=== PATIENT | male | born 1950 | race Caucasian/White ===

== ENCOUNTER 2023-10-24 14:54 | Emergency (ER) | payer MEDICARE, OTHER, SELFPAY ==
[2023-10-24] VITALS (10 sets, daily range): BP systolic 83–106; BP diastolic 47–71
[2023-10-24] MEDS: ADENOCARD 6 MG IV (15:15)
[2023-10-24] MEDS: OMNIPAQUE 50 ML PO (15:36)
[2023-10-24] MEDS: ZOFRAN 4 MG IV (15:37)
[2023-10-24] MEDS: NSS 1000 IV (15:39)
--- NOTE | 2023-10-24 15:42 | ED.GENMED ---
History of Present Illness
<Hayden Veronica DO - Last Filed: 10/24/23 15:44>
General
Chief Complaint: Abdominal Pain
Time Seen by Provider: 10/24/23 15:11
Travel History
Have you had any contact with someone who has COVID-19?: No
Do you have any symptoms of coronavirus? Fever > 100 degrees, chills, cough, shortness of breath, sore throat, loss of taste or smell, muscle aches, or headache?: No
<Cruz Mclaughlin Jr., PA-C - Last Filed: 10/24/23 20:26>
General
Source: patient and spouse
Exam Limitations: none
Nursing documentation reviewed up to this point in time: agreed with
History of Present Illness
History of Present Illness:
73-year-old male with past medical history of stroke, CAD hypertension hyperlipidemia presenting to the emergency department today with concerns of vomiting 2 days ago seem to improve yesterday but again progressed last night throughout the day
today has had ongoing nausea decreased appetite and diffuse abdominal achy discomfort. Denies any chest pain shortness of breath or palpitations. Upon arrival here patient was found to be significantly tachycardic to the 190s consistent with
supraventricular tachycardia.
Past History
<Hayden Veronica DO - Last Filed: 10/24/23 15:44>
Past History
ED Past Medical History: CVA, GERD, HTN and Other (BPH, Hepatits C)
ED Past Surgical History: Appendectomy and Orthopedic (Back surgery with laminectomy, and pinning of the lower leg)
Social History
Tobacco: Other (1 cigar per day)
Alcohol: None
Personal:
Living: with family
Employment: Disabled
Family History
Family History: Negative Diabetes, Hypertension or CAD
<Cruz Mclaughlin Jr., PA-C - Last Filed: 10/24/23 20:26>
Review of Systems
Allergies reviewed?: Yes
All Other Systems: ROS reviewed and negative except as documented in HPI and ROS
<Cruz Mclaughlin Jr. PAPatyC - Last Filed: 10/24/23 20:26>
Physical Exam
Physical Exam:
GENERAL: Alert , in no apparent distress
EYE: pupils equal and reactive
NECK: Supple, no significant adenopathy.
ENT: o/p clr, mmm.
CARDIAC: Regular rate and rhythm .
LUNGS: Clear breath sounds bilaterally, no acute respiratory distress, no wheezes/rales/rhonchi
ABDOMEN: Tender palpation to the lower abdomen otherwise soft benign abdomen.
NEUROLOGICAL: Alert and oriented, no focal neuro deficits
SKIN: Warm and dry, skin intact.
MUSCULOSKELETAL: No edema, well perfused.
PSYCH: Normal and appropriate interaction.
Course
<Hayden Veronica DO - Last Filed: 10/24/23 15:44>
Orders/Labs/Results
Orders:
Orders
10/24/23 15:00
ECG [Electrocardiogram (*1)] Urgent
Reason for Study: Tachycardia
10/24/23 15:01
EKG- Treatment ONCE
10/24/23 15:11
Adenosine [Adenocard] 18 mg .ROUTE .STK-MED ONE
10/24/23 15:18
EKG [Electrocardiogram (*1)] Urgent
Reason for Study: Chest Pain
EKG- Treatment ONCE
10/24/23 15:27
CMP [Comprehensive Metabolic Panel] Urgent
Complete Blood Count/No Diff Urgent
Lactic Acid Urgent
Lipase Urgent
10/24/23 15:29
CT Abd/pel W Iv And Oral Contr Urgent
Comment:
Reason For Exam: abd pain
Iohexol [Omnipaque] See Protocol PO NOW STA
10/24/23 15:30
Ondansetron Injectable [Zofran] 4 mg IV NOW STA
10/24/23 15:38
0.9% Sodium Chloride 1000 ml [Nss] 1,000 ml IV BOLUS
10/24/23 15:39
Adenosine [Adenocard] 6 mg IV NOW STA
10/24/23 16:19
EKG [Electrocardiogram (*1)] Urgent
Reason for Study: Chest Pain
EKG- Treatment ONCE
10/24/23 16:30
Add On- LAB Urgent
Tests Added?: lipase
10/24/23 18:54
Urinalysis Reflex To Culture Urgent
Date Specimen was Collected: 10/24/23
Time Specimen was Collected: 18:18
Urine Microscopic Reflex Cult Urgent
Abnormal Lab Results
10/24/23 10/24/23
15:27 18:54
WBC 13.9 H 10^3/uL
(4.8-10.8)
RBC 4.56 L 10^6/uL
(4.70-6.10)
MCH 31.4 H pg
(27.0-31.0)
BUN 28 H mg/dl
(9-20)
Glucose 129 H mg/dl
(70-99)
Total Bilirubin 1.4 H mg/dl
(0.2-1.3)
Urine Ketones Trace A
(Negative)
Ur Occult Blood Reflex 1+ A
(Negative)
Urine RBC 3-6 A /HPF
(0-2)
10/24/23 15:27
10/24/23 15:27
Vital Signs
Initial and Last Documented VS:
Initial Vital Signs
Temp Pulse Pulse Ox
99.1 F 198 99
10/24/23 15:07 10/24/23 15:07 10/24/23 15:07
Last Documented Vital Signs
Temp Pulse Resp BP Pulse Ox
98.5 F 89 23 106/69 95
10/24/23 18:59 10/24/23 20:00 10/24/23 20:00 10/24/23 20:00 10/24/23 18:15
<Cruz Mclaughlin Jr., PA-C - Last Filed: 10/24/23 20:26>
Orders/Labs/Results
Orders:
Orders
10/24/23 15:00
ECG [Electrocardiogram (*1)] Urgent
Reason for Study: Tachycardia
10/24/23 15:01
EKG- Treatment ONCE
10/24/23 15:11
Adenosine [Adenocard] 18 mg .ROUTE .STK-MED ONE
10/24/23 15:18
EKG [Electrocardiogram (*1)] Urgent
Reason for Study: Chest Pain
EKG- Treatment ONCE
10/24/23 15:27
CMP [Comprehensive Metabolic Panel] Urgent
Complete Blood Count/No Diff Urgent
Lactic Acid Urgent
Lipase Urgent
10/24/23 15:29
CT Abd/pel W Iv And Oral Contr Urgent
Comment:
Reason For Exam: abd pain
Iohexol [Omnipaque] See Protocol PO NOW STA
10/24/23 15:30
Ondansetron Injectable [Zofran] 4 mg IV NOW STA
10/24/23 15:38
0.9% Sodium Chloride 1000 ml [Nss] 1,000 ml IV BOLUS
10/24/23 15:39
Adenosine [Adenocard] 6 mg IV NOW STA
10/24/23 16:19
EKG [Electrocardiogram (*1)] Urgent
Reason for Study: Chest Pain
EKG- Treatment ONCE
10/24/23 16:30
Add On- LAB Urgent
Tests Added?: lipase
10/24/23 18:54
Urinalysis Reflex To Culture Urgent
Date Specimen was Collected: 10/24/23
Time Specimen was Collected: 18:18
Urine Microscopic Reflex Cult Urgent
Abnormal Lab Results
10/24/23 10/24/23
15:27 18:54
WBC 13.9 H 10^3/uL
(4.8-10.8)
RBC 4.56 L 10^6/uL
(4.70-6.10)
MCH 31.4 H pg
(27.0-31.0)
BUN 28 H mg/dl
(9-20)
Glucose 129 H mg/dl
(70-99)
Total Bilirubin 1.4 H mg/dl
(0.2-1.3)
Urine Ketones Trace A
(Negative)
Ur Occult Blood Reflex 1+ A
(Negative)
Urine RBC 3-6 A /HPF
(0-2)
10/24/23 15:27
10/24/23 15:27
Vital Signs
Initial and Last Documented VS:
Initial Vital Signs
Temp Pulse Pulse Ox
99.1 F 198 99
10/24/23 15:07 10/24/23 15:07 10/24/23 15:07
Last Documented Vital Signs
Temp Pulse Resp BP Pulse Ox
98.5 F 89 23 106/69 95
10/24/23 18:59 10/24/23 20:00 10/24/23 20:00 10/24/23 20:00 10/24/23 18:15
<Hayden Veronica, DO - Last Filed: 10/24/23 15:44>
MDM/Problems Addressed
Differential Diagnosis Includes:
SVT dehydration enteritis bowel obstruction
MDM/Problems Addressed:
Vomiting abdominal pain SVT
Chronic conditions affecting care: Previous abdomnial surgery
Acute Exacerbation and/or Progression of Chronic Illness: Previous abdomnial surgery
<Cruz Mclaughlin Jr., PA-C - Last Filed: 10/24/23 20:26>
MDM/Problems Addressed
MDM/Problems Addressed:
Vomiting abdominal pain SVT
73-year-old male presenting to the emergency department today initially with concerns of intermittent vomiting and abdominal pain over the past few days worsening today. When he arrived here heart rate in the 190s consistent with supraventricular
tachycardia. He otherwise generally felt well did not have chest pain palpitations or shortness of breath. Patient initially had a modified Valsalva maneuver attempted without success. He was then given 6 mg of adenosine with good success.
Patient then in normal sinus rhythm in the 80s. Otherwise patient did have lower abdominal discomfort to palpation mainly to the left lower quadrant and suprapubic region. Concerning this plan for CT scan for further assessment. Was given Zofran
and fluids to help with symptoms. Symptoms fully resolving after patient's SVT was treated. Labs resulting in slightly elevated white count of 13.9 elevated BUN. He was given a liter of fluid. CT scan obtained that showed multiple incidental
findings including dilatation to the pancreatic duct as well as hepatic lesion. He claims he will follow-up closely with his oncologist for management and further evaluation of this. Otherwise stable for outpatient management return precautions
given.
<Hayden Veronica DO - Last Filed: 10/24/23 15:44>
*Radiology
Radiology exam reviewed: preliminary read by ED provider
*Pulse Oximetry
Patient hypoxic: no
*EKG
Interpreted by ED Provider?: Yes
Interpretation: abnormal
Comparison EKG: changes noted
Heart Rate: 200
Rate: tachycardiac
Rhythm: SVT
Ischemia: non-specific ST changes
*Commodity Broker Interpretation
Rate: tachycardiac
Interpretation: abnormal
Heart Rate: 200
Rhythm: SVT
*Critical Care Note
Total Time (30-74mins, 75-104mins- exclusive of procedures): 32
comment:
CRITICAL CARE STATEMENT: A total of 32 minutes of critical care time was provided for this patient. This includes management of unstable vital signs, evaluation of the patient at bedside, reviewing the patient's pertinent medical records discussion
with EMS providers and patient's family in addition to discussion with consultants, review of old EKGs and review of pertinent medical records. This time with separate from time utilized to perform the aforementioned documented procedures
Data Reviewed
Review of Other/Old Records Reveals: Labs, Operative Reports, Progress Notes and Discharge Summary
Source: patient, records and family
ED Attending Note
<Hayden Veronica, DO - Last Filed: 10/24/23 15:44>
ED Attending Note
Patient seen and examined by attending physician: Yes
I performed the substantive portion of visit, reviewed & personally made and approve the management plan that is documented in note by myself or BHUMI.: Yes
ED Attending Note:
Seen with PA examined independently I was present for pertinent portion of resuscitation, including arrhythmia management,
73-year-old male prior hernia repair, peripheral vascular disease had some abdominal pain nausea vomiting found to be in SVT did not know he was tachycardic treated with vagal maneuvers unsuccessfully and then adenosine back into sinus rhythm now
his abdomen is soft, no obvious hernia minimal diffuse tenderness, will check electrolytes, CT
Perform serial abdominal exams
-
Portions of this chart may have been created with voice recognition software.� Occasional wrong word or��sound alike� substitutions may have occurred due to the inherent limitations of voice recognition software.
Discharge Plan
Departure
Patient Disposition: Home (Routine Discharge)
Date of Disposition: 10/24/23
Time of Disposition: 20:17
Patient with high blood pressure during this ER visit?: No
Condition: Good
Covid-19: Not Applicable
Discharge Problem:
SVT (supraventricular tachycardia), Liver mass, Adrenal mass
Instructions: Supraventricular tachycardia (SVT)
Prescriptions:
No Action
methadone 5 MG tablet
10 mg PO BID
atorvastatin 80 MG tablet
80 mg PO DAILY
aspirin 81 MG tablet,chewable
81 mg PO DAILY
Hold Instructions: Resume on 07/22/23. Resume aspirin 07/22/23
Medical Marijuana
1 dose inhalation Q6HPRN PRN (Reason: anxiety, pain)
quetiapine 200 mg Tablet
200 mg PO HS
mirtazapine 7.5 mg Tablet
7.5 mg PO HS
omeprazole 20 mg Tablet,Delayed Release (Dr/Ec)
20 mg PO DAILY
oxycodone 10 mg tablet
10 mg PO Q6HPRN PRN (Reason: breakthrough pain)
cholecalciferol (vitamin D3) [Vitamin D3] 25 mcg (1,000 unit) Tablet
25 mcg PO DAILY
losartan 25 mg Tablet
25 mg PO DAILY
quetiapine 50 mg Tablet
50 mg PO DAILY
multivitamin Tablet
1 tab PO DAILY
acetaminophen [acetaminophen] 325 mg tablet
650 mg PO Q4HPRN PRN (Reason: mild pain) Qty: 1 0RF
ibuprofen 200 mg tablet
400 - 600 mg PO Q6HPRN PRN (Reason: moderate pain) Qty: 1 0RF
Referrals:
Areli Day MD [Family Provider] -
Activity Restrictions/Additional Instructions:
You came to the emergency department today with concerns of initial abdominal pain nausea and vomiting. You are found to have supraventricular tachycardia which required a dose of a medication called adenosine which improved this to a normal
rhythm. You had reassuring labs. Your CT scan did show concerning findings that does require additional evaluation to rule out cancerous process. Please follow closely with your oncologist for further assessment. Return to the emergency
department any worsening, new or concerning symptoms.
Interventions
Interventions:
*Risk Screen - Suicide Last Done: 10/24/23 15:01
*General Assessment Last Done: 10/24/23 15:01
*Neglect/Abuse Screening Last Done: 10/24/23 15:01
*ED COVID-19 Vaccine History Last Done: 10/24/23 16:22
OI-Kbdpti-Cozdvajain Assessment Last Done: 10/24/23 15:50
[2023-10-24 15:51] LABS: Hematocrit 40.7 % (39.0-52.0); Hemoglobin 14.3 g/dL (13.0-18.0); Lactic Acid 1.8 mmol/L (0.7-2.0); Mean Corp Hgb Conc. 35.1 g/dL (33.0-37.0); Mean Corpuscular Hgb 31.4 pg (27.0-31.0); Mean Corpuscular Volume 89.3 fL (80.0-94.0); Mean Platelet Volume 9.3 fL (7.4-10.4); Platelet Count 226 10^3/uL (130-400); Red Blood Cell Count 4.56 10^6/uL (4.70-6.10); White Blood Cell Count 13.9 10^3/uL (4.8-10.8)
[2023-10-24 15:54] LABS: ALT (SGPT) 20 U/L (0-50); AST (SGOT) 41 U/L (17-59); Albumin 4.2 g/dl (3.5-5.0); Alkaline Phosphatase 105 U/L (38-126); Blood Urea Nitrogen 28 mg/dl (9-20); Calcium 9.8 mg/dl (8.4-10.2); Carbon Dioxide 24 mmol/L (22-30); Chloride 98 mmol/L (98-107); Glucose 129 mg/dl (70-99); Potassium 4.4 mmol/L (3.5-5.1); Sodium 136 mmol/L (135-145); Total Bilirubin 1.4 mg/dl (0.2-1.3); Total Protein 7.7 g/dl (6.3-8.2); eGFR > 60.00
[2023-10-24 17:01] LABS: Lipase 35 U/L (23-300)
[2023-10-24 19:03] LABS: Urine Albumin Trace (Neg - Trace); Urine Bilirubin Negative (Negative); Urine Character Clear (Clear); Urine Color Yellow; Urine Glucose Negative (Negative); Urine Ketone Trace (Negative); Urine Leukocyte Negative (Negative); Urine Nitrite Negative (Negative); Urine Occult Blood 1+ (Negative); Urine Specific Gravity 1.015 (<1.030); Urine Urobilinogen Negative (Neg - 1+)
[2023-10-24 19:26] LABS: Urine Squamous Cell 0-2 /LPF (Few)
== END 2023-10-24 20:30 | disposition home or self-care (01) ==
LOC: EMR 14:54
PROVIDERS: Physician Assistant; EMERGENCY PHYSICIAN Emergency Medicine; FAMILY PHYSICIAN Internal Medicine
DX: I47.10 Supraventricular tachycardia, unspecified (principal); E27.9 Disorder of adrenal gland, unspecified; R16.0 Hepatomegaly, not elsewhere classified; I25.10 Atherosclerotic heart disease of native coronary artery without angina pectoris; Z86.73 Personal history of transient ischemic attack (TIA), and cerebral infarction without residual deficits; Z98.1 Arthrodesis status; I10 Essential (primary) hypertension
CPT/HCPCS: 99291; 96374; 96375; 96361; 74177; 80053; 81003; 81015; 83605; 83690; 85027; 93005; 99285; J0153; Q9967

== ENCOUNTER → 2023-12-23 09:12 | Outpatient (REF) | payer MEDICARE, OTHER, SELFPAY | LOC: DHCBS HW 09:12 | PROVIDERS: ATTENDING PHYSICIAN Nuclear Medicine Nuclear Cardiology; FAMILY PHYSICIAN Internal Medicine | DX: I08.0 Rheumatic disorders of both mitral and aortic valves (principal); I42.9 Cardiomyopathy, unspecified | CPT/HCPCS: 93306 ==

== ENCOUNTER → 2024-02-21 09:59 | Outpatient (REF) | payer MEDICARE, OTHER, SELFPAY ==
[2024-02-21 10:28] LABS: % Basophils 0.7 % (0-2); % Eosinophils 1.1 % (0-6); % Immature Granulocytes 0.4 % (0-0.5); % Lymphocytes 12.5 % (20.5-51.1); % Monocytes 16.2 % (1.7-9.3); % Neutrophils 69.1 % (42.2-75.2); Absolute Eosinophils 0.1 10^3/uL (0-0.7); Absolute Lymphocytes 0.7 10^3/uL (1.2-3.4); Absolute Monocytes 0.9 10^3/uL (0.1-0.6); Absolute Neutrophils 3.7 10^3/uL (1.4-6.5); Hematocrit 34.4 % (39.0-52.0); Hemoglobin 11.9 g/dL (13.0-18.0); Mean Corp Hgb Conc. 34.6 g/dL (33.0-37.0); Mean Corpuscular Hgb 30.9 pg (27.0-31.0); Mean Corpuscular Volume 89.4 fL (80.0-94.0); Mean Platelet Volume 8.6 fL (7.4-10.4); Nucleated Red Blood Cells % 0 % (-); Platelet Count 173 10^3/uL (130-400); Red Blood Cell Count 3.85 10^6/uL (4.70-6.10); Red Cell Dist. Width 13.7 % (11.5-14.5); White Blood Cell Count 5.4 10^3/uL (4.8-10.8)
[2024-02-21 13:04] LABS: ALT (SGPT) 17 U/L (0-50); AST (SGOT) 40 U/L (17-59); Albumin 4.2 g/dl (3.5-5.0); Alkaline Phosphatase 118 U/L (38-126); Blood Urea Nitrogen 25 mg/dl (9-20); Calcium 9.4 mg/dl (8.4-10.2); Carbon Dioxide 28 mmol/L (22-30); Chloride 104 mmol/L (98-107); Glucose 96 mg/dl (70-99); Magnesium 1.8 mg/dl (1.6-2.3); Potassium 4.7 mmol/L (3.5-5.1); Sodium 142 mmol/L (135-145); Total Bilirubin 0.5 mg/dl (0.2-1.3); Total Protein 7.9 g/dl (6.3-8.2); eGFR > 60.00
== END ==
LOC: SDSPAT 09:59
PROVIDERS: ATTENDING PHYSICIAN Internal Medicine Cardiovascular Disease; FAMILY PHYSICIAN Internal Medicine; OTHER PHYSICIAN Nuclear Medicine Nuclear Cardiology
DX: Z01.818 Encounter for other preprocedural examination (principal); I47.10 Supraventricular tachycardia, unspecified
CPT/HCPCS: 36415; 80053; 83735; 85025; 93005

== ENCOUNTER 2024-03-10 06:06 | Day surgery (SDC) | payer MEDICARE, OTHER, SELFPAY ==
[2024-02-21 10:09] VITALS: BMI 22.4
[2024-03-10] VITALS (10 sets, daily range): BP systolic 109–132; BP diastolic 62–87; BMI 22.0
[2024-03-10 09:19] LABS: ACT-LR - POC 256 Seconds (116-155)
[2024-03-10 09:35] LABS: ACT-LR - POC 343 Seconds (116-155)
[2024-03-10 10:00] LABS: ACT-LR - POC 261 Seconds (116-155)
[2024-03-10 11:05] LABS: ACT-LR - POC 287 Seconds (116-155)
[2024-03-10] MEDS: ROXICODONE 10 MG PO (12:56)
--- NOTE | 2024-03-10 13:15 | ITS.CL.ABL ---
Reporting Specialist - Ablation
Ablation
Procedure Report:
Primary Physician: Areli Mercado MD
Primary Civil Manager: Butch Horton DO
Procedure Date: 03/10/2024
Procedure
Electrophysiology Study with SVT ablation
Left atrial recording / pacing
IV drug for arrhythmia induction
Patient History
Patient is a pleasant 73-year-old male with a past medical history significant for hypertension, hyperlipidemia, carotid artery disease, CVA of unknown mechanism, BPH, valvular heart disease, cardiomyopathy with recovered LVEF, chronic back pain and
paroxysmal supraventricular tachycardia. Clinical SVT noted to be 197 bpm terminated with adenosine and vagal maneuvers.
Method
After informed consent was obtained, the patient was brought to the EP lab in a post-absorptive, non-sedated state. A peripheral IV was in place. Continuous electrocardiography, blood pressure and pulse oximetry monitoring was initiated and
cardioversion / defibrillator electrodes were positioned on the chest in an AP orientation. A 'time-out' was called. Conscious sedation was administered with the assistance of the anesthesia services, and local anesthesia was given at the femoral
vein access sites.
Using modified Seldinger technique, vascular access was achieved and sheaths were placed. Multipolar catheters were advanced to the coronary sinus, His bundle recording position, right ventricle, and high right atrium. Following the determination
of baseline conduction intervals, comprehensive EP study was performed. Pacing and recording from the RA, RV, HBE, and CS / LA was performed.
For arrhythmia details, see below.
Fluoroscopy time:
See MAC lab
Total RF time:
2 min 16s
Estimated Blood Loss
5-10 mL
Complications
None
At the end of the procedure, protamine was provided and all catheters and sheaths were removed and hemostasis was assured with manual pressure an figure of 8 suture. The patient was returned to the recovery area in stable condition.
Access Sites:
Left Femoral Vein: 2 sheaths (7 Fr, 6 Fr)
Right Femoral Vein: 2 sheaths (8 Fr upsized to 11.5 Fr, 9 Fr)
Baseline Intervals:
NV: 143 ms
AH: 125 ms
HV: 39 ms
QRS: 133 ms
QT: 446 ms
QTc: 414 ms
A-A: 1160 ms
R-R: 1160 ms
Post-Procedure Intervals:
NV: 166 ms
AH: 124 ms
HV: 35 ms
QRS: 120 ms
QT: 458 ms
QTc: 429 ms
A-A: 1160 ms
R-R: 1160 ms
AV Conduction:
- AVWB at 520 msec
- No retrograde VA conduction noted with V-pacing
Refractory Periods
- AV Node ERP 700/390; 600/320
Procedure Synopsis:
The patient entered the room in sinus rhythm. Following placement of catheters, baseline electrophysiology study was performed. No VA conduction was noted no retrograde conduction therefore no clear evidence of an accessory pathway. Following
baseline measurements, atrial echo stimuli drivetrain was performed. Patient demonstrated an AH jump at 700/500 ms along with 2 echo beats noted at 700/410 ms. SVT was noninducible. Isoproterenol was started and findings were consistent as
mentioned with AH jump and echo beats however no evidence of SVT induced. Following isoproterenol washout, pacing maneuvers were performed once more with consistent findings. Heparin was given in bolus form for ACT 300-400 and HD grid was advanced
into the right atrium where electroanatomic mapping was performed clearly defining hiss area, coronary sinus ostium, tricuspid annulus, RA, fast and slow pathway. Following electroanatomic mapping, 8 Panamanian was exchanged for an 11.5 fr steerable
agilis sheath and a tacticath DF SE was advanced to the region of the slow pathway. RF was delivered with slow flow, 20 W with careful monitoring of AV conduction, impedance, temperature, power settings. Ablation was delivered in areas demarcated
by electroanatomic mapping as low voltage bridge/slow pathway region along with EGM's demonstrating an A-V ratio of 1:3 to 1:5. Brief slow junctional beats were noted with RF application. Ablations were performed at the level of the coronary sinus
ostial floor near the tricuspid annulus rising no higher than middle of the coronary sinus/sinus roof. Fast junctional's were noted with higher ablation and RF was immediately terminated and AV conduction remained intact for the entirety of the
case. Following RF application, electrophysiology study with extremely was once more performed on and off isoproterenol demonstrating AH jump without echoes without inducible SVT. AH jump was also noted to be intermittent. Following slow pathway
modification, baseline measurements were assessed and noted to be no different from preprocedure and catheters removed and hemostasis achieved as noted above. AV conduction remained intact pre and post procedure.
Recommendations
- Bedrest with straight-leg precautions 4 hours
-Anticipate same-day discharge if patient meets clinical metrics in stable
- Continue home medications as indicated
- Follow-up in office in 4-[address] Horton
Hussein Ruiz DO
Clinical Cardiac Electrophysiology
cc: Areli Mercado MD; Butch Horton DO
== END 2024-03-10 15:56 | disposition home or self-care (01) ==
LOC: CATH 06:06
PROVIDERS: ATTENDING PHYSICIAN Internal Medicine Cardiovascular Disease; FAMILY PHYSICIAN Internal Medicine; OTHER PHYSICIAN Nuclear Medicine Nuclear Cardiology
DX: I47.10 Supraventricular tachycardia, unspecified (principal); Z86.73 Personal history of transient ischemic attack (TIA), and cerebral infarction without residual deficits; E78.5 Hyperlipidemia, unspecified; I25.10 Atherosclerotic heart disease of native coronary artery without angina pectoris; F32.A Depression, unspecified; F41.9 Anxiety disorder, unspecified; F17.200 Nicotine dependence, unspecified, uncomplicated; Z85.89 Personal history of malignant neoplasm of other organs and systems; Z79.82 Long term (current) use of aspirin; K21.9 Gastro-esophageal reflux disease without esophagitis; Z79.899 Other long term (current) drug therapy; Z90.49 Acquired absence of other specified parts of digestive tract; Z98.890 Other specified postprocedural states
CPT/HCPCS: C1732; C1730; C1766; C2630; C1892; C1894; 76937; 85347; 86850; 86900; 86901; 93005; 93653

== ENCOUNTER → 2024-03-21 08:55 | Outpatient (REF) | payer MEDICARE, OTHER, SELFPAY | LOC: RAD 08:55 | PROVIDERS: ATTENDING PHYSICIAN Physician Assistant; FAMILY PHYSICIAN Internal Medicine | DX: I77.9 Disorder of arteries and arterioles, unspecified (principal); R47.01 Aphasia | CPT/HCPCS: 93880 ==

== ENCOUNTER → 2024-03-23 12:01 | Outpatient (REF) | payer MEDICARE, OTHER, SELFPAY | LOC: MRI 3T 12:01 | PROVIDERS: ATTENDING PHYSICIAN Nurse Practitioner Primary Care; FAMILY PHYSICIAN Internal Medicine | DX: R16.0 Hepatomegaly, not elsewhere classified (principal) | CPT/HCPCS: 74183; A9581 ==

== ENCOUNTER 2024-11-11 03:33 | Emergency (ER) | payer MEDICARE, OTHER, SELFPAY ==
[2024-11-11 03:43] VITALS: BP 154/88
[2024-11-11 04:08] LABS: % Basophils 0.2 % (0-2); % Eosinophils 0.2 % (0-6); % Immature Granulocytes 0.3 % (0-0.5); % Lymphocytes 4.7 % (20.5-51.1); % Monocytes 11.1 % (1.7-9.3); % Neutrophils 83.5 % (42.2-75.2); Absolute Lymphocytes 0.5 10^3/uL (1.2-3.4); Absolute Monocytes 1.2 10^3/uL (0.1-0.6); Absolute Neutrophils 9.1 10^3/uL (1.4-6.5); Hematocrit 34.8 % (39.0-52.0); Hemoglobin 11.8 g/dL (13.0-18.0); Mean Corp Hgb Conc. 33.9 g/dL (33.0-37.0); Mean Corpuscular Hgb 30.3 pg (27.0-31.0); Mean Corpuscular Volume 89.2 fL (80.0-94.0); Mean Platelet Volume 8.9 fL (7.4-10.4); Nucleated Red Blood Cells % 0 % (-); Platelet Count 208 10^3/uL (130-400); Red Cell Dist. Width 14.7 % (11.5-14.5); White Blood Cell Count 10.9 10^3/uL (4.8-10.8)
[2024-11-11 04:34] LABS: ALT (SGPT) 18 U/L (0-50); AST (SGOT) 32 U/L (17-59); Albumin 3.9 g/dl (3.5-5.0); Alkaline Phosphatase 111 U/L (38-126); Blood Urea Nitrogen 27 mg/dl (9-20); Calcium 9.6 mg/dl (8.4-10.2); Carbon Dioxide 22 mmol/L (22-30); Chloride 104 mmol/L (98-107); Glucose 142 mg/dl (70-99); Lipase 31 U/L (23-300); Potassium 4.4 mmol/L (3.5-5.1); Sodium 138 mmol/L (135-145); Total Bilirubin 1.3 mg/dl (0.2-1.3); Total Protein 7.7 g/dl (6.3-8.2); eGFR > 60.00
[2024-11-11 05:08] VITALS: BP 158/68
== END 2024-11-11 05:25 | disposition left against medical advice (07) ==
LOC: EMR 03:33
PROVIDERS: EMERGENCY PHYSICIAN Emergency Medicine
DX: R07.9 Chest pain, unspecified (principal); Z53.21 Procedure and treatment not carried out due to patient leaving prior to being seen by health care provider
CPT/HCPCS: 80053; 83690; 85025; 93005

== ENCOUNTER 2024-11-11 13:38 | Inpatient (IN) | payer MEDICARE, OTHER, SELFPAY ==
[2024-11-11 08:44] VITALS: BP 162/88
--- NOTE | 2024-11-11 09:06 | ED.GENMED ---
History of Present Illness
<SONIA Mak - Last Filed: 11/11/24 12:56>
General
Chief Complaint: Abdominal Pain
Source: patient
Exam Limitations: none
Time Seen by Provider: 11/11/24 09:05
Nursing documentation reviewed up to this point in time: agreed with
History of Present Illness
History of Present Illness:
74-year-old male with past medical history of chronic pain on chronic narcotics, CVA, tonsillar cancer, CAD hypertension hyperlipidemia presents to the ER complaining of abdominal pain since yesterday morning. He reports his vomit about 5 times and
there is some black mixed with the bile. He denies any black or dark stools. He last had a bowel movement yesterday morning. He does not feel constipated. He is on chronic pain medicine including methadone and oxycodone as needed. He denies any
fever or chills. He was here earlier This morning had blood work but left before getting seen.
Patient has had prior abdominal imaging including abdominal MRI(2023) MRI revealed mild dilation of the proximal pancreatic duct up to 5.5 mm however MRI negative for any suspicious findings
Past History
<SONIA Mak - Last Filed: 11/11/24 12:56>
Past History
ED Past Medical History: CVA, GERD, HTN and Other (BPH, Hepatits C)
ED Past Surgical History: Appendectomy and Orthopedic (Back surgery with laminectomy, and pinning of the lower leg)
Social History
Tobacco: Other (1 cigar per day)
Alcohol: None
Personal:
Living: with family
Employment: Disabled
Family History
Family History: Negative Diabetes, Hypertension or CAD
Review of Systems
<SONIA Mak - Last Filed: 11/11/24 12:56>
Review of Systems
Allergies reviewed?: Yes
Other source history: family
All Other Systems: ROS reviewed and negative except as documented in HPI and ROS
Constitutional: Reports no symptoms
Respiratory: Reports no symptoms
Cardiac: Reports no symptoms
ABD/GI: Reports abdominal pain, nausea and vomiting; Denies bloody stools or black stools
: Reports no symptoms
Musculoskeletal: Reports no symptoms
Skin: Reports no symptoms
Neurological: Reports no symptoms
Psychiatric: Reports no symptoms
Phy Exam
<SONIA Mak - Last Filed: 11/11/24 12:56>
General Physical Exam
General Presentation: no apparent distress
General age: appears stated age
General Skin: warm and dry
General Habitus: normal
General Hydration: appears well hydrated
Cardiovascular Exam
Cardiovascular Exam: regular rate/rhythm, no murmur and normal peripheral pulses
Gastrointestinal Exam
Gastrointestinal Exam: soft and other (mild non specific Tender throughout)
Neurological Exam
Neurological Exam: alert and oriented x3
Musculoskeletal Exam
Musculoskeletal Exam: full ROM
Skin Exam
Skin Exam: normal color and warm/dry
Psychiatric Exam
Psychiatric Exam: normal mood/affect
Course
<SONIA Mak - Last Filed: 11/11/24 12:56>
Orders/Labs/Results
Orders:
Orders
11/11/24 09:14
Electrocardiogram (*1) Stat
Reason for Study: Abdominal Pain
EKG- Treatment ONCE
IV Insert/Care/Rem.- Treatment PRN
Urinalysis Reflex To Culture Urgent
Date Specimen was Collected: 11/11/24
Time Specimen was Collected: 11:42
0.9% Sodium Chloride 1000 ml [Nss] 1,000 ml IV BOLUS
HYDROmorphone [Dilaudid] 1 mg IV NOW STA
11/11/24 09:56
Ondansetron Injectable [Zofran] 4 mg .ROUTE .STK-MED ONE
11/11/24 09:57
Iohexol [Omnipaque] See Protocol PO NOW STA
11/11/24 10:03
Ondansetron Injectable [Zofran] 4 mg IV NOW STA
11/11/24 11:35
CT Abd/Pel (IV only)-DH only Urgent
Comment:
Reason For Exam: abd pain /vomiting /unable to tolerate oral contra
11/11/24 12:59
Norovirus by PCR Routine
ROWENA Source: Feces/Stool
Specimen Description:
Stool Culture Routine
ROWENA Source: Feces/Stool
Specimen Description:
Stool For WBC Routine
ROWENA Source: Feces/Stool
Specimen Description:
11/11/24 09:14
11/11/24 09:14
Vital Signs
Initial and Last Documented VS:
Initial Vital Signs
Temp Pulse Resp BP Pulse Ox
98.2 F 62 16 162/88 99
11/11/24 08:44 11/11/24 08:44 11/11/24 08:44 11/11/24 08:44 11/11/24 08:44
Last Documented Vital Signs
Temp Pulse Resp BP Pulse Ox
98.0 F 70 18 178/87 100
11/11/24 12:30 11/11/24 12:30 11/11/24 12:30 11/11/24 12:30 11/11/24 12:30
Blast Furnace Helper consulted with Physician
Blast Furnace Helper consulted with physician?: Yes
Name of Physician Consulted: Ernesto
<Darnell Orozco MD - Last Filed: 11/11/24 13:20>
Orders/Labs/Results
Orders:
Orders
11/11/24 09:14
Electrocardiogram (*1) Stat
Reason for Study: Abdominal Pain
EKG- Treatment ONCE
IV Insert/Care/Rem.- Treatment PRN
Urinalysis Reflex To Culture Urgent
Date Specimen was Collected: 11/11/24
Time Specimen was Collected: 11:42
0.9% Sodium Chloride 1000 ml [Nss] 1,000 ml IV BOLUS
HYDROmorphone [Dilaudid] 1 mg IV NOW STA
11/11/24 09:56
Ondansetron Injectable [Zofran] 4 mg .ROUTE .STK-MED ONE
11/11/24 09:57
Iohexol [Omnipaque] See Protocol PO NOW STA
11/11/24 10:03
Ondansetron Injectable [Zofran] 4 mg IV NOW STA
11/11/24 11:35
CT Abd/Pel (IV only)-DH only Urgent
Comment:
Reason For Exam: abd pain /vomiting /unable to tolerate oral contra
11/11/24 12:59
Norovirus by PCR Routine
ROWENA Source: Feces/Stool
Specimen Description:
Stool Culture Routine
ROWENA Source: Feces/Stool
Specimen Description:
Stool For WBC Routine
ROWENA Source: Feces/Stool
Specimen Description:
11/11/24 09:14
11/11/24 09:14
Vital Signs
Initial and Last Documented VS:
Initial Vital Signs
Temp Pulse Resp BP Pulse Ox
98.2 F 62 16 162/88 99
11/11/24 08:44 11/11/24 08:44 11/11/24 08:44 11/11/24 08:44 11/11/24 08:44
Last Documented Vital Signs
Temp Pulse Resp BP Pulse Ox
98.0 F 70 18 178/87 100
11/11/24 12:30 11/11/24 12:30 11/11/24 12:30 11/11/24 12:30 11/11/24 12:30
<SONIA Mak - Last Filed: 11/11/24 12:56>
MDM/Problems Addressed
Differential Diagnosis Includes:
Not limited to viral syndrome, obstruction diverticulitis colitis
MDM/Problems Addressed:
Patient is document is a 74-year-old male who presents to the ER complaining abdominal pain since yesterday with nausea vomiting. Patient was just here at 4 AM had blood work but left prior to being seen. Patient presents nausea dry heaving
reports his emesis was more black-colored at home however it is green here. Abdomen with nonspecific mild tenderness. Patient was medicated for pain and Zofran however continues to vomit. Patient unable to tolerate oral contrast will order CT IV
contrast only. Labs from 4 AM were reviewed and unremarkable including a normal lipase. Patient had previous finding of pancreatic duct dilatation and hepatic lesion on previous CAT scan in 2023 however MRI was done and MRI of his abdomen which
was negative .
Patient was medicated for pain and nausea here but complains of persistent nausea and abdominal discomfort. CAT scan done today. Which cannot rule out enteritis. There is stable biliary tract dilatation likely the cycle of prior cholecystectomy
and a benign adrenal nodule likely. Patient the ED attending patient does not feel that he can go home will admit likely ops. Not limited to viral syndrome
<SONIA Mak - Last Filed: 11/11/24 12:56>
*Radiology
Radiology exam reviewed: radiology read reviewed
*Pulse Oximetry
Patient hypoxic: no
*Critical Care Note
Total Time (30-74mins, 75-104mins- exclusive of procedures): Not Applicable
ED Attending Note
<SONIA Mak - Last Filed: 11/11/24 12:56>
-
Portions of this chart may have been created with voice recognition software.� Occasional wrong word or��sound alike� substitutions may have occurred due to the inherent limitations of voice recognition software.
<Darnell Orozco MD - Last Filed: 11/11/24 13:20>
ED Attending Note
Patient seen and examined by attending physician: Yes
I performed the substantive portion of visit, reviewed & personally made and approve the management plan that is documented in note by myself or BHUMI.: Yes
ED Attending Note:
74-year-old male 1+ day of abdominal pain recurrent vomiting. History of same in the past. History of pancreatitis.
On exam patient is nontoxic in no distress. Vital signs are stable. Lungs clear and equal. Heart regular rate and rhythm no murmur. Abdomen soft. Bowel sounds present. Mild periumbilical tenderness. No rebound or guarding no mass or hernia
Labs are stable. CT is stable. Discussed inpatient versus outpatient management. Patient is uncomfortable going home. He will be admitted as observation.
Discharge Plan
Departure
Patient Disposition: Admit
Date of Disposition: 11/11/24
Time of Disposition: 12:52
Admit to: Med/Surg
Admit to doctor: hospitalist
Presentation/result/management discussed w/ accepting MD/DO: Hospitalist
Patient with high blood pressure during this ER visit?: Yes
Condition: Fair
Covid-19: Not Applicable
Discharge Problem:
Nausea and vomiting, Abdominal pain
Prescriptions:
No Action
methadone 5 MG tablet
10 mg PO BID
atorvastatin 80 MG tablet
80 mg PO DAILY
aspirin 81 MG tablet,chewable
81 mg PO DAILY
Medical Marijuana
1 dose inhalation Q6HPRN PRN (Reason: anxiety, pain)
quetiapine 200 mg Tablet
200 mg PO HS
mirtazapine 7.5 mg Tablet
7.5 mg PO HS
omeprazole 20 mg Tablet,Delayed Release (Dr/Ec)
20 mg PO DAILY
oxycodone 10 mg tablet
10 mg PO Q6HPRN PRN (Reason: pain)
cholecalciferol (vitamin D3) [Vitamin D3] 25 mcg (1,000 unit) Tablet
25 mcg PO DAILY
losartan 25 mg Tablet
25 mg PO DAILY
quetiapine 50 mg Tablet
50 mg PO BID
multivitamin Tablet
1 tab PO HS
acetaminophen 325 mg tablet
650 mg PO Q4HPRN PRN (Reason: mild pain) Qty: 1 0RF
ibuprofen 200 mg tablet
400 - 600 mg PO Q6HPRN PRN (Reason: moderate pain) Qty: 1 0RF
metoprolol succinate 25 mg Tablet Extended Release 24 Hr
12.5 mg PO DAILY
Referrals:
Areli Day MD [Family Provider] -
Interventions
Interventions:
RG-Obozbw-Bfgubosmiv Assessment Last Done: 11/11/24 09:53
Discharge Date and Time
Print Language: SAMI
[2024-11-11 09:53] VITALS: BMI 22.8
[2024-11-11] MEDS: ZOFRAN 4 MG IV (10:05)
[2024-11-11] MEDS: NSS 1000 IV ×2 (10:05→16:13)
[2024-11-11] MEDS: DILAUDID 1 MG IV (10:05)
[2024-11-11] MEDS: OMNIPAQUE 50 ML PO (10:33)
[2024-11-11 12:30] VITALS: BP 178/87
--- NOTE | 2024-11-11 12:55 | HPS.HSE ---
Family Physician
-
Family Physician: Areli Day
Chief Complaint
-
n/v
History of Present Illness
74-year-old male with past medical history of chronic pain on chronic narcotics, CVA, tonsillar cancer, CAD hypertension hyperlipidemia presents to the ER complaining of abdominal pain since yesterday morning.patient reports vomiting since yesterday
morning . He is vomiting bile . He has not eaten for past 2 days . He had moved his regular bowel movement yesterday . Denies diarrhea patient denied fever. Patient stated some chills. Patient denied headache, dizziness or syncope. Patient
denied chest pain or short of breath. Patient denied dysuria or hematuria.
Patient received Dilaudid, Zofran and normal saline in ER. CT with enteritis admitted for further management.
Medical History
Past Medical History
Past Medical History: Reports Other
Additional Past Medical History:
Hypertension
Palpitation
Bilateral carotid artery disease
Hypertension
Hyperlipidemia
Bradycardia
Chronic calculus cholecystitis
Goals of bronchitis
UTI
SVT
Chronic pain
Cholangitis due to bile calculus with obstruction
Stenosis of left carotid artery
CVA
BPH
Tonsillar cancer
Past Surgical History: Reports Other
Additional Past Surgical History:
Lap cholecystectomy
Left hip IM nail fixation
Robotic assisted ventral right inguinal hernia repair with mesh
Appendectomy
Prostatectomy
Hernia operation
Cardiac ablation
Social History
Tobacco: Smoker (Half a cigar daily)
Alcohol: None
Drug: None
Personal:
Living: With Family
Family History
Family History: Not pertinent
Allergies / Home Medications
Allergies reflects when Allergies were last updated in [facility].
Home Medications with original date entered in [facility]
Allergy/Medication List:
Allergies
Allergy/AdvReac Type Severity Reaction Status Date / Time
pollen extracts Allergy SEASONAL Verified 11/11/24 03:42
ALLERGIES
morphine AdvReac Agitation, Verified 11/11/24 03:42
unable to
fall asleep
Home Medications
atorvastatin 80 mg tablet 80 mg PO DAILY High cholesterol 07/02/20
methadone 5 mg tablet 10 mg PO BID Pain 07/02/20
aspirin 81 mg chewable tablet 81 mg PO DAILY Blood clot prevention/tx 07/04/20
Medical Marijuana 1 dose inhalation Q6HPRN PRN anxiety, pain 10/19/21
mirtazapine 7.5 mg tablet 7.5 mg PO HS Mental Health/Anxiety 05/13/23
omeprazole 20 mg tablet,delayed release 20 mg PO DAILY Gastrointestinal Issue 05/13/23
oxycodone 10 mg tablet 10 mg PO Q6HPRN PRN pain 05/13/23
quetiapine 200 mg tablet 200 mg PO HS Mental Health/Anxiety 05/13/23
cholecalciferol (vitamin D3) 25 mcg (1,000 unit) tablet (Vitamin D3) 25 mcg PO DAILY 07/15/23
losartan 25 mg tablet 25 mg PO DAILY 07/15/23
quetiapine 50 mg tablet 50 mg PO BID 07/19/23
multivitamin 1 tab PO HS 08/31/23
acetaminophen 325 mg tablet 650 mg (2 x 325 mg) PO Q4HPRN PRN mild pain #1 tab 09/10/23
ibuprofen 200 mg tablet 400 - 600 mg (2 - 3 x 200 mg) PO Q6HPRN PRN moderate pain #1 tab 09/10/23
metoprolol succinate 25 mg tablet,extended release 24 hr 12.5 mg PO DAILY 02/16/24
Review of Systems
-
Constitutional: Reports No Symptoms
EENT: Reports No Symptoms
Respiratory: Reports No Symptoms
Cardiac: Reports No Symptoms
Abdomen/GI: Reports Abdominal Pain, Nausea and Vomiting
: Reports No Symptoms
Musculoskeletal: Reports No Symptoms
Skin: Reports No Symptoms
Neurological: Reports No Symptoms
Endocrine: Reports No Symptoms
Hematologic/Lymphatic: Reports No Symptoms
Psych: Reports No Symptoms
Physical Exam
Vital Signs
Vital Signs
Temp Pulse Resp BP Pulse Ox
98.0 F 70 18 178/87 100
11/11/24 12:30 11/11/24 12:30 11/11/24 12:30 11/11/24 12:30 11/11/24 12:30
Physical Exam
General: Well Developed, Well Nourished and No Apparent Distress
HEENT: NormoCephalic, Moist mucous membranes and Atraumatic
Respiratory: Clear
Cardiac: S1/S2 and Regular Rhythm; No Murmur or Rub
GI: Soft, Non Distended, Normal Bowel Sounds and Tender; No Organomegaly
Rectal: Deferred by Provider
Musculoskeletal: No Clubbing, No Cyanosis and No Edema
Skin: No Rash
Neuro: AO x 3 and Nonfocal/grossly intact
Psych: Calm
Laboratory Results
-
11/11/24 09:14
11/11/24 09:14
Laboratory Results
Total Bilirubin Cancelled 11/11/24 09:14
AST Cancelled 11/11/24 09:14
ALT Cancelled 11/11/24 09:14
Alkaline Phosphatase Cancelled 11/11/24 09:14
Lipase Cancelled 11/11/24 09:14
Data Reviewed
-
CT Scan: Report Reviewed by me
Lab Data: Labs Reviewed by me
Impression/Plan
-
#persistent abdominal pain associated with n/v secondary to Enteritis
-CT with enteritis
-wbc 10.9
-Keep patient n.p.o., advance as tolerated
-Zofran as needed for nausea vomiting Dilaudid as needed for pain
-
#anemia of chronic disease
-hgb stable at 11.8
-no active bleeding
-ctm
#Throat cancer history of chemoradiation finish May 2021
#History of chronic memory impairment post chemo, radiation left side neck
#CVA Hx
-cont statin, asa
�
#HLD
�-cont statin
#GERD
- cont PPI
#Hepatitis C Hx
#Chronic back pain, hip pain laminectomy back
�-cont methadone 10 mg bid, 5mg hs
-Vapes medical marijuana
#Insomnia
-cont Remeron
#DVT prophylaxis�subcu heparin
Full code
--- NOTE | 2024-11-11 13:43 | W.PN.UPDATE ---
Update Note
Progress Note Update
This note serves as an addendum to the H&P by administrative accountant BHUMI Gretchen PRINCE
HPI
74M HX chronic narcotics dependent chronic pain syndrome, , CVA, tonsillar cancer, CAD hypertension hyperlipidemia seen at ER;
- acute onset of abdominal pain since yesterday morning; s/p Dilaudid, Zofran and normal saline in ER
- vomiting bilus vomitus since yesterday morning .
- not eaten for past 2 days
- regular bowel movement yesterday
- POS chills . No fever
AP CT with enteritis admitted for further management.
ROS
- enies diarrhea patient denied fever.
- denied headache, dizziness or syncope.
- denied chest pain or short of breath. Patient denied dysuria or hematuria.
PHX; as above
Vital Signs
Temp Pulse Resp BP Pulse Ox
98.0 F 70 18 178/87 100
11/11/24 12:30 11/11/24 12:30 11/11/24 12:30 11/11/24 12:30 11/11/24 12:30
PE
Gen: Not toxic
HEENT: anicteric
Neck: supple
Lungs: CTA
Cor: RRR S1 S2
Abdomen: diffusely tender abdomen, no guarding , no rigidity
MOVIE EXTRA: AAA O3, NFND
MS: No edema
Psych: normal affect
Laboratory Tests
11/11/24
04:00
WBC 10.9 H
Hgb 11.8 L
Plt Count 208
BUN 27 H
Creatinine 1.0
eGFR > 60.00
Glucose 142 H
AST 32
ALT 18
[address] Abd/Pel (IV only)-
Limited evaluation of intestinal tract without intestinal obstruction or free air.
Some nondistended fluid-filled loops of small bowel, nonspecific, CANNOT EXCLUDE ENTERITIS.
Prior cholecystectomy. Stable biliary tract dilatation, likely the sequela of prior cholecystectomy.
Small hiatal hernia.
Stable 1.1 cm left adrenal nodule, most likely benign.
Prior appendectomy.
Stable marked T12 vertebral compression fracture, chronic.
EKG
SINUS BRADYCARDIA
LEFT ANTERIOR FASCICULAR BLOCK
ABNORMAL ECG
WHEN COMPARED WITH ECG OF 11-NOV-2024 03:44,
NO SIGNIFICANT CHANGE WAS FOUND
Confirmed by STEVE ANNA MD ([id number]) on 11/11/2024 11:24:13 AM
ASSESSMENT & PLAN
74M HX chronic narcotics dependent chronic pain syndrome, , CVA, tonsillar cancer, CAD hypertension hyperlipidemia
acute onset of abdominal pain with bolius vomiting, denied dirrhea and contact exposure
4 yr old male presents for n/v persistant and abd pain . ct shows enteritis. pt does not feel like he can go home .. obs . He had labs from 4am . he was here earlier had blood work left without being
Persistent abdominal pain associated with n/v secondary to acute gastritis/enteritis
- suspect viral syndrome
- Norovirus with new onset tof diarrhea
- supportive care: NPO and ADAT, IVF, Anti emetics PRN, additioanl PRN IV Dilaudid for severe pain
Anemia of chronic disease: Hgb 11.8
-no active bleeding
HX Throat cancer: s/p chemoradiation as of May 2021
HX chronic memory impairment post chemo, XRT
HX CVA
HLD
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
Chronic back pain, hip pain
- HX laminectomy back
- cont methadone 10 mg bid, 5mg hs
- Vapes medical marijuana
Chr insomnia
- cont. Remeron
HX Hepatitis C
DVT Px: SQH
Full code
IP MS
[2024-11-11 15:00] VITALS: BP 160/70
[2024-11-11] MEDS: SEROQUEL 50 MG PO (16:14)
[2024-11-11] MEDS: DILAUDID 0.5 MG IV (16:15)
[2024-11-11 19:03] LABS: Urine Albumin 2+ (Neg - Trace); Urine Bilirubin Negative (Negative); Urine Character Clear (Clear); Urine Color Yellow; Urine Glucose Negative (Negative); Urine Ketone Negative (Negative); Urine Leukocyte Negative (Negative); Urine Nitrite Negative (Negative); Urine Occult Blood 2+ (Negative); Urine Urobilinogen Negative (Neg - 1+)
[2024-11-11 19:11] LABS: Urine Red Blood Cell 0-2 /HPF (0-2); Urine Squamous Cell 0-2 /LPF (Few)
[2024-11-11 20:59] VITALS: BP 146/79
[2024-11-11] MEDS: SEROQUEL 200 MG PO (21:30)
[2024-11-11] MEDS: DOLOPHINE 10 MG PO (21:31)
[2024-11-11] MEDS: HEPARIN 5000 UNITS SC (21:31)
[2024-11-11] MEDS: REMERON 7.5 MG PO (21:31)
[2024-11-11 23:32] VITALS: BP 115/57
[2024-11-12 07:00] VITALS: BP 124/74
[2024-11-12 07:41] LABS: Hemoglobin 10.7 g/dL (13.0-18.0); Mean Corp Hgb Conc. 32.4 g/dL (33.0-37.0); Mean Corpuscular Hgb 29.9 pg (27.0-31.0); Mean Corpuscular Volume 92.2 fL (80.0-94.0); Mean Platelet Volume 9.4 fL (7.4-10.4); Platelet Count 232 10^3/uL (130-400); Red Blood Cell Count 3.58 10^6/uL (4.70-6.10); Red Cell Dist. Width 15.1 % (11.5-14.5); White Blood Cell Count 8.8 10^3/uL (4.8-10.8)
[2024-11-12] MEDS: SEROQUEL 50 MG PO ×2 (09:34→16:36)
[2024-11-12] MEDS: LOW STRENGTH ASPIRIN 81 MG PO (09:34)
[2024-11-12] MEDS: LIPITOR 80 MG PO (09:36)
[2024-11-12] MEDS: PROTONIX 40 MG PO (09:36)
[2024-11-12] MEDS: TOPROL XL 12.5 MG PO (09:40)
[2024-11-12] MEDS: COZAAR 25 MG PO (09:40)
[2024-11-12] MEDS: DOLOPHINE 10 MG PO (09:41)
[2024-11-12] MEDS: HEPARIN 5000 UNITS SC (09:41)
--- NOTE | 2024-11-12 10:16 | CM ---
gun club manager reviewed patient's chart and met with patient and patient states he lives with his spouse is independent with adl's and ambulation, has a cane that he occasionally uses, patient drives. Home with spouse no needs when stable.
PCP: Areli Estrada
Pharm[facility]: [facility]
--- NOTE | 2024-11-12 14:11 | W.PN.HOSP.TC ---
Today's Communication/Plan
-
Assessment / Plan
Assessment / Plan
nad
ctabl
rrr
soft nt nd
calm
aaox3
enteritis resolved
advance diet as tolerated
left adrenal nodule
outpt pcp follow up for continued follow up
dc home if able to tolerate diet
Anticipated Discharge: Today
Subjective/Interval History
-
Date of Service: November 12, 2024
seen and examined. nv resolved. ready for a diet
Objective Data
-
Labs:
Laboratory Results
11/12/24
06:41
WBC 8.8
Hgb 10.7 L
Hct 33.0 L
Plt Count 232
Vital Signs:
Vital Signs
Temp Pulse Resp BP Pulse Ox
98.0 F 68 16 124/74 94
11/12/24 07:00 11/12/24 07:00 11/12/24 07:00 11/12/24 07:00 11/12/24 07:00
I&O
11/11/24 11/12/24 11/13/24
06:59 06:59 06:59
Intake Total 750 / 750 480 / 480
Balance 750 / 750 480 / 480
--- NOTE | 2024-11-12 14:21 | W.DCSUMMARY ---
Discharge Summary
Discharge Data
Date of Admission: 11/11/24
Date of Discharge: 11/12/24
-
Pending Results: No
Hospital Course
74-year-old male with past medical history of chronic pain on chronic narcotics, CVA, tonsillar cancer, CAD hypertension hyperlipidemia
Presented with NV and abdominal pain. Recieved antiemetics and IVF with improvemment of symtpomatology. Will DC home home.
Will need to follow up with PCP. Left adrenal nodule will need to be follow up with PCP as well
CTAP
IMPRESSION:
Limited evaluation of intestinal tract without intestinal obstruction or free air. Some nondistended fluid-filled loops of small bowel, nonspecific, CANNOT EXCLUDE ENTERITIS.
Prior cholecystectomy. Stable biliary tract dilatation, likely the sequela of prior cholecystectomy.
Small hiatal hernia.
Stable 1.1 cm left adrenal nodule, most likely benign.
Prior appendectomy.
Stable marked T12 vertebral compression fracture, chronic.
Discharge Plan
-
Patient Disposition: Home (Routine Discharge)
Discharge Diagnosis/Procedures: Enteritis
Diet: As tolerated, Low Fat, Low Cholesterol and 2 Gram Sodium
Activity: As tolerated
Activity Restrictions/Additional Instructions:
Presented with NV and abdominal pain. Recieved antiemetics and IVF with improvemment of symtpomatology. Will DC home home.
Will need to follow up with PCP. Left adrenal nodule will need to be follow up with PCP as well
CTAP
IMPRESSION:
Limited evaluation of intestinal tract without intestinal obstruction or free air. Some nondistended fluid-filled loops of small bowel, nonspecific, CANNOT EXCLUDE ENTERITIS.
Prior cholecystectomy. Stable biliary tract dilatation, likely the sequela of prior cholecystectomy.
Small hiatal hernia.
Stable 1.1 cm left adrenal nodule, most likely benign.
Prior appendectomy.
Stable marked T12 vertebral compression fracture, chronic.
Referrals:
Areli Day MD [Family Provider] -
Prescriptions:
New
metoprolol succinate 25 mg Tablet Extended Release 24 Hr
12.5 mg PO DAILY Qty: 30 0RF
Continued
methadone 5 MG tablet
10 mg PO BID
Patient Comments:
patient flled wilmer 10/17/24 #150
atorvastatin 80 MG tablet
80 mg PO DAILY
aspirin 81 MG tablet,chewable
81 mg PO DAILY
Medical Marijuana
1 dose inhalation Q6HPRN PRN (Reason: anxiety, pain)
quetiapine 200 mg Tablet
200 mg PO HS
mirtazapine 7.5 mg Tablet
7.5 mg PO HS
omeprazole 20 mg Tablet,Delayed Release (Dr/Ec)
20 mg PO DAILY
oxycodone 10 mg tablet
10 mg PO Q6HPRN PRN (Reason: pain)
cholecalciferol (vitamin D3) [Vitamin D3] 25 mcg (1,000 unit) Tablet
25 mcg PO DAILY
losartan 25 mg Tablet
25 mg PO DAILY
quetiapine 50 mg Tablet
50 mg PO BID
multivitamin Tablet
1 tab PO DAILY
Discharge Orders:
Discharge Patient (As Directed); Ordered 11/12/24
Ordered By: Pratik Camara
Discharge Date and Time
Print Language: CZECH
--- NOTE | 2024-11-12 14:47 | CM ---
Home today no needs.
Plan; Home no needs.
[2024-11-12 15:00] VITALS: BP 137/93
== END 2024-11-12 17:33 | disposition home or self-care (01) | DRG 392 ==
LOC: 4 WEST ACU 13:38
PROVIDERS: Nurse Practitioner; Registered Nurse; ADMITTING PHYSICIAN Internal Medicine; ATTENDING PHYSICIAN Hospitalist; EMERGENCY PHYSICIAN Emergency Medicine; FAMILY PHYSICIAN Internal Medicine
DX: K52.9 Noninfective gastroenteritis and colitis, unspecified (principal); F11.20 Opioid dependence, uncomplicated; E27.8 Other specified disorders of adrenal gland; Z90.49 Acquired absence of other specified parts of digestive tract; K44.9 Diaphragmatic hernia without obstruction or gangrene; F41.9 Anxiety disorder, unspecified; G89.4 Chronic pain syndrome; Z85.818 Personal history of malignant neoplasm of other sites of lip, oral cavity, and pharynx; I25.10 Atherosclerotic heart disease of native coronary artery without angina pectoris; Z86.73 Personal history of transient ischemic attack (TIA), and cerebral infarction without residual deficits; I10 Essential (primary) hypertension; E78.5 Hyperlipidemia, unspecified; N40.0 Benign prostatic hyperplasia without lower urinary tract symptoms; Z79.82 Long term (current) use of aspirin; F51.04 Psychophysiologic insomnia; D63.8 Anemia in other chronic diseases classified elsewhere; Z92.21 Personal history of antineoplastic chemotherapy; Z92.3 Personal history of irradiation; F17.290 Nicotine dependence, other tobacco product, uncomplicated; K21.9 Gastro-esophageal reflux disease without esophagitis
CPT/HCPCS: 74177; 80053; 81003; 81015; 83690; 85025; 85027; 87045; 87046; 87427; 89055; 93005; 96374; 96375; 99285; Q9967

== ENCOUNTER 2025-01-20 18:36 | Emergency (ER) | payer MEDICARE, OTHER, SELFPAY ==
[2025-01-20 18:40] VITALS: BP 159/86
[2025-01-20 20:29] VITALS: BMI 21.2
[2025-01-20 21:02] VITALS: BP 144/78
[2025-01-20 21:03] LABS: % Basophils 0.2 % (0-2); % Immature Granulocytes 0.3 % (0-0.5); % Monocytes 6.7 % (1.7-9.3); % Neutrophils 87.8 % (42.2-75.2); Absolute Lymphocytes 0.5 10^3/uL (1.2-3.4); Absolute Monocytes 0.7 10^3/uL (0.1-0.6); Absolute Neutrophils 8.7 10^3/uL (1.4-6.5); Hematocrit 35.8 % (39.0-52.0); Hemoglobin 12.4 g/dL (13.0-18.0); Mean Corp Hgb Conc. 34.6 g/dL (33.0-37.0); Mean Corpuscular Hgb 29.7 pg (27.0-31.0); Mean Corpuscular Volume 85.9 fL (80.0-94.0); Mean Platelet Volume 8.7 fL (7.4-10.4); Nucleated Red Blood Cells % 0 % (-); Platelet Count 362 10^3/uL (130-400); Red Blood Cell Count 4.17 10^6/uL (4.70-6.10); Red Cell Dist. Width 14.5 % (11.5-14.5); White Blood Cell Count 9.9 10^3/uL (4.8-10.8)
--- NOTE | 2025-01-20 21:18 | ED.GENMED ---
History of Present Illness
General
Chief Complaint: Abdominal Pain
Time Seen by Provider: 01/20/25 20:26
History of Present Illness
History of Present Illness:
74-year-old male with history of CHF, hypertension, hyperlipidemia, GERD, and prior stroke presents to the emergency department for evaluation of intractable nausea and vomiting developing today associated with mild generalized abdominal pain. Very
similar presentation 2 months ago requiring hospitalization. He states today he does not wish to be hospitalized. Pain is quite minimal at this time. Denies any associated fevers or chills. He is notably anxious on arrival
Past History
Past History
ED Past Medical History: CVA, GERD, HTN and Other (BPH, Hepatits C)
ED Past Surgical History: Appendectomy and Orthopedic (Back surgery with laminectomy, and pinning of the lower leg)
Social History
Tobacco: Other (1 cigar per day)
Alcohol: None
Personal:
Living: with family
Employment: Disabled
Family History
Family History: Negative Diabetes, Hypertension or CAD
Review of Systems
Review of Systems
Allergies reviewed?: Yes
All Other Systems: ROS reviewed and negative except as documented in HPI and ROS
Phy Exam
Physical Exam
Physical Exam:
GEN: Anxious and moaning, unable to sit still
HEENT: Oral mucosa moist, no scleral icterus
Cardiac: Regular rate and rhythm, no murmur
Lung: No respiratory distress, no tachypnea
Abdomen: Soft, nontender
MSK: No gross deformity or injuries
Skin: Good color, no pallor or jaundice, no rashes
Neuro: AO x3, moves all extremities freely
Psych: Calm, cooperative
Course
Orders/Labs/Results
Orders:
Orders
01/20/25 20:57
Complete Blood Count/With Diff Urgent
Comprehensive Metabolic Panel Urgent
Lipase Urgent
01/20/25 21:03
Electrocardiogram (*1) Urgent
Reason for Study: QTc Monitoring
EKG- Treatment ONCE
01/20/25 21:04
Lactated Ringers [Lr] 1,000 ml IV BOLUS
01/20/25 21:31
Haloperidol Lactate [Haldol] 2 mg IV NOW STA
01/20/25 23:12
Lorazepam [Ativan] 0.5 mg IV NOW STA
Abnormal Lab Results
01/20/25
20:57
RBC 4.17 L 10^6/uL
(4.70-6.10)
Hgb 12.4 L g/dL
(13.0-18.0)
Hct 35.8 L %
(39.0-52.0)
Absolute Neuts (auto) 8.7 H 10^3/uL
(1.4-6.5)
Absolute Lymphs (auto) 0.5 L 10^3/uL
(1.2-3.4)
Absolute Monos (auto) 0.7 H 10^3/uL
(0.1-0.6)
Neutrophils % 87.8 H %
(42.2-75.2)
Lymphocytes % 5.0 L %
(20.5-51.1)
BUN 32 H mg/dl
(9-20)
Glucose 134 H mg/dl
(70-99)
Total Protein 8.9 H g/dl
(6.3-8.2)
01/20/25 20:57
01/20/25 20:57
Vital Signs
Initial and Last Documented VS:
Initial Vital Signs
Temp Pulse Resp BP Pulse Ox
98.6 F 63 18 159/86 98
01/20/25 18:40 01/20/25 18:40 01/20/25 18:40 01/20/25 18:40 01/20/25 18:40
Last Documented Vital Signs
Temp Pulse Resp BP Pulse Ox
98.6 F 76 21 160/75 96
01/20/25 18:40 01/20/25 22:00 01/20/25 22:00 01/20/25 22:00 01/20/25 21:30
MDM/Problems Addressed
MDM/Problems Addressed:
Most likely cannabinoid hyperemesis syndrome as the patient indicates warm bath or shower does improve his symptoms. He was treated with IV fluids and haloperidol with improvement. Just prior to discharge the patient was noted to have a bout of
severe diaphoresis and anxiety, he could not was repeatedly pacing about the room asking to leave. He was monitored and the episode passed. He was given IV Ativan for this. Clinically he is well, encouraged cessation of marijuana use. He has no
significant abdominal tenderness warranting imaging at this time
*Critical Care Note
Total Time (30-74mins, 75-104mins- exclusive of procedures): Not Applicable
ED Attending Note
-
Portions of this chart may have been created with voice recognition software.� Occasional wrong word or��sound alike� substitutions may have occurred due to the inherent limitations of voice recognition software.
Discharge Plan
Departure
Patient Disposition: Home (Routine Discharge)
Date of Disposition: 01/20/25
Time of Disposition: 23:33
Patient with high blood pressure during this ER visit?: No
Discharge Problem:
Cannabinoid hyperemesis syndrome
Instructions: Cannabis use disorder
Prescriptions:
No Action
methadone 5 MG tablet
10 mg PO BID
Patient Comments:
patient flled wilmer 10/17/24 #150
atorvastatin 80 MG tablet
80 mg PO DAILY
aspirin 81 MG tablet,chewable
81 mg PO DAILY
Medical Marijuana
1 dose inhalation Q6HPRN PRN (Reason: anxiety, pain)
quetiapine 200 mg Tablet
200 mg PO HS
mirtazapine 7.5 mg Tablet
7.5 mg PO HS
omeprazole 20 mg Tablet,Delayed Release (Dr/Ec)
20 mg PO DAILY
oxycodone 10 mg tablet
10 mg PO Q6HPRN PRN (Reason: pain)
cholecalciferol (vitamin D3) [Vitamin D3] 25 mcg (1,000 unit) Tablet
25 mcg PO DAILY
losartan 25 mg Tablet
25 mg PO DAILY
quetiapine 50 mg Tablet
50 mg PO BID
multivitamin Tablet
1 tab PO DAILY
metoprolol succinate 25 mg Tablet Extended Release 24 Hr
12.5 mg PO DAILY Qty: 30 0RF
Referrals:
Areli Day MD [Family Provider] -
Interventions
Interventions:
*Risk Screen - Suicide Last Done: 01/20/25 18:40
*General Assessment Last Done: 01/20/25 18:40
*Neglect/Abuse Screening Last Done: 01/20/25 18:40
*ED- Fall Risk Assessment Last Done: 01/20/25 21:29
*ED COVID-19 Vaccine History Last Done: 01/20/25 21:29
[facility] Assessment Last Done: 01/20/25 21:29
Discharge Date and Time
Print Language: MAORI
[2025-01-20 21:19] LABS: ALT (SGPT) 39 U/L (0-50); AST (SGOT) 53 U/L (17-59); Albumin 4.4 g/dl (3.5-5.0); Alkaline Phosphatase 101 U/L (38-126); Blood Urea Nitrogen 32 mg/dl (9-20); Calcium 10.1 mg/dl (8.4-10.2); Carbon Dioxide 30 mmol/L (22-30); Chloride 99 mmol/L (98-107); Estimated Creatinine Clearance 43 ml/min; Glucose 134 mg/dl (70-99); Lipase 25 U/L (23-300); Potassium 4.4 mmol/L (3.5-5.1); Sodium 141 mmol/L (135-145); Total Bilirubin 0.9 mg/dl (0.2-1.3); Total Protein 8.9 g/dl (6.3-8.2); eGFR 57.29
[2025-01-20] MEDS: LR 1000 IV (21:31)
[2025-01-20] MEDS: HALDOL 2 MG IV (21:42)
[2025-01-20 22:00] VITALS: BP 160/75
[2025-01-20 23:00] VITALS: BP 154/85
[2025-01-20 23:07] VITALS: BP 134/77
== END 2025-01-20 23:50 | disposition home or self-care (01) ==
LOC: EMR 18:36
PROVIDERS: EMERGENCY PHYSICIAN Emergency Medicine; FAMILY PHYSICIAN Internal Medicine
DX: F12.90 Cannabis use, unspecified, uncomplicated (principal); R11.2 Nausea with vomiting, unspecified; I11.0 Hypertensive heart disease with heart failure; I50.9 Heart failure, unspecified; E78.00 Pure hypercholesterolemia, unspecified; K21.9 Gastro-esophageal reflux disease without esophagitis; N40.0 Benign prostatic hyperplasia without lower urinary tract symptoms; F17.290 Nicotine dependence, other tobacco product, uncomplicated; F41.9 Anxiety disorder, unspecified; Z86.73 Personal history of transient ischemic attack (TIA), and cerebral infarction without residual deficits; Z90.49 Acquired absence of other specified parts of digestive tract
CPT/HCPCS: 99283; 96374; 80053; 83690; 85025; 93005

== ENCOUNTER 2025-01-22 04:56 | Emergency (ER) | payer MEDICARE, OTHER, SELFPAY ==
[2025-01-22 04:57] VITALS: BP 130/84
[2025-01-22 05:25] LABS: % Basophils 0.2 % (0-2); % Eosinophils 0.5 % (0-6); % Immature Granulocytes 0.3 % (0-0.5); % Lymphocytes 7.3 % (20.5-51.1); % Monocytes 12.8 % (1.7-9.3); % Neutrophils 78.9 % (42.2-75.2); Absolute Eosinophils 0.1 10^3/uL (0-0.7); Absolute Lymphocytes 0.8 10^3/uL (1.2-3.4); Absolute Monocytes 1.4 10^3/uL (0.1-0.6); Absolute Neutrophils 8.4 10^3/uL (1.4-6.5); Hematocrit 37.7 % (39.0-52.0); Hemoglobin 12.9 g/dL (13.0-18.0); Mean Corp Hgb Conc. 34.2 g/dL (33.0-37.0); Mean Corpuscular Hgb 30.1 pg (27.0-31.0); Mean Corpuscular Volume 87.9 fL (80.0-94.0); Mean Platelet Volume 8.9 fL (7.4-10.4); Nucleated Red Blood Cells % 0 % (-); Platelet Count 330 10^3/uL (130-400); Red Blood Cell Count 4.29 10^6/uL (4.70-6.10); Red Cell Dist. Width 14.8 % (11.5-14.5); White Blood Cell Count 10.7 10^3/uL (4.8-10.8)
[2025-01-22 05:48] LABS: ALT (SGPT) 34 U/L (0-50); AST (SGOT) 57 U/L (17-59); Albumin 4.1 g/dl (3.5-5.0); Alkaline Phosphatase 104 U/L (38-126); Blood Urea Nitrogen 39 mg/dl (9-20); Calcium 9.9 mg/dl (8.4-10.2); Carbon Dioxide 28 mmol/L (22-30); Chloride 102 mmol/L (98-107); Glucose 132 mg/dl (70-99); Lipase 35 U/L (23-300); Potassium 3.9 mmol/L (3.5-5.1); Sodium 141 mmol/L (135-145); Total Bilirubin 0.8 mg/dl (0.2-1.3); Total Protein 8.1 g/dl (6.3-8.2); eGFR > 60.00
--- NOTE | 2025-01-22 07:33 | ED.GENMED ---
History of Present Illness
General
Chief Complaint: Abdominal Symptoms
Source: patient
Exam Limitations: none
Time Seen by Provider: 01/22/25 07:20
Nursing documentation reviewed up to this point in time: agreed with
History of Present Illness
History of Present Illness:
Patient is a 74-year-old male past with history of CHF hypertension GERD hyperlipidemia, chronic pain on chronic narcotics, CVA ,tonsillar cancer (status post chemoradiation) hypertension hyperlipidemia who presents to the ER for nausea vomiting
since 3 AM. Patient was just here January 20 and diagnosed with cannabinoid hyperemesis syndrome. Patient did not have imaging at that time. at bedside reports patient is prescribed marijuana for previous history of tonsillar cancer. he last
used medical marijuana 2 days ago.
Patient complains of vomiting since 3 AM and abdominal pain. reports that when patient was here 2 days ago he was given Haldol which did improve his symptoms while he was here. Patient does feel that symptoms are similar today as 2 days ago.
Past History
Past History
ED Past Medical History: CVA, GERD, HTN and Other (BPH, Hepatits C)
ED Past Surgical History: Appendectomy and Orthopedic (Back surgery with laminectomy, and pinning of the lower leg)
Social History
Tobacco: Other (1 cigar per day)
Alcohol: None
Personal:
Living: with family
Employment: Disabled
Family History
Family History: Negative Diabetes, Hypertension or CAD
Review of Systems
Review of Systems
Allergies reviewed?: Yes
All Other Systems: ROS reviewed and negative except as documented in HPI and ROS
Constitutional: Reports no symptoms
Respiratory: Reports no symptoms
Cardiac: Reports no symptoms
ABD/GI: Reports abdominal pain, nausea and vomiting; Denies diarrhea or constipated
: Reports no symptoms
Musculoskeletal: Reports no symptoms
Skin: Reports no symptoms
Neurological: Reports no symptoms
Psychiatric: Reports no symptoms
Phy Exam
General Physical Exam
General Presentation: no apparent distress
General Skin: warm and dry
General Habitus: elderly
General Mental: alert
General Hydration: dry mucous membranes
Cardiovascular Exam
Cardiovascular Exam: regular rate/rhythm, no murmur and normal peripheral pulses
Pulmonary Exam
Pulmonary Exam: lungs clear and no respiratory distress
Gastrointestinal Exam
Gastrointestinal Exam: non tender and soft
Neurological Exam
Neurological Exam: alert and oriented x3
Musculoskeletal Exam
Musculoskeletal Exam: full ROM
Skin Exam
Skin Exam: normal color and warm/dry
Psychiatric Exam
Psychiatric Exam: normal mood/affect
Course
Orders/Labs/Results
Orders:
Orders
01/22/25 05:15
Complete Blood Count/With Diff Urgent
Comprehensive Metabolic Panel Urgent
Lipase Urgent
01/22/25 07:46
0.9% Sodium Chloride 1000 ml [Nss] 1,000 ml IV BOLUS
01/22/25 08:38
CT Abd/Pel (IV only)-DH only Urgent
Comment:
Reason For Exam: abd pain n/v
01/22/25 08:39
Haloperidol Lactate [Haldol] 5 mg IV NOW STA
01/22/25 09:01
Electrocardiogram (*1) Urgent
Reason for Study: QTc Monitoring
EKG- Treatment ONCE
01/22/25 09:58
Urinalysis Urgent
Date Specimen was Collected: 01/22/25
Time Specimen was Collected: 09:56
Urine Microscopic Urgent
Date Specimen was Collected: 01/22/25
Time Specimen was Collected: 09:56
Abnormal Lab Results
01/22/25 01/22/25
05:15 09:58
RBC 4.29 L 10^6/uL
(4.70-6.10)
Hgb 12.9 L g/dL
(13.0-18.0)
Hct 37.7 L %
(39.0-52.0)
RDW 14.8 H %
(11.5-14.5)
Absolute Neuts (auto) 8.4 H 10^3/uL
(1.4-6.5)
Absolute Lymphs (auto) 0.8 L 10^3/uL
(1.2-3.4)
Absolute Monos (auto) 1.4 H 10^3/uL
(0.1-0.6)
Neutrophils % 78.9 H %
(42.2-75.2)
Lymphocytes % 7.3 L %
(20.5-51.1)
Monocytes % 12.8 H %
(1.7-9.3)
BUN 39 H mg/dl
(9-20)
Glucose 132 H mg/dl
(70-99)
Urine Occult Blood 1+ A
(Negative)
Urine Albumin 2+ A
(Neg - Trace)
01/22/25 05:15
01/22/25 05:15
Vital Signs
Initial and Last Documented VS:
Initial Vital Signs
Temp Pulse Resp BP Pulse Ox
98.4 F 92 24 130/84 98
01/22/25 04:57 01/22/25 04:57 01/22/25 04:57 01/22/25 04:57 01/22/25 04:57
Last Documented Vital Signs
Temp Pulse Resp BP Pulse Ox
98.4 F 68 24 130/84 96
01/22/25 04:57 01/22/25 08:05 01/22/25 04:57 01/22/25 04:57 01/22/25 08:05
Garment Turner consulted with Physician
Garment Turner consulted with physician?: Yes
Name of Physician Consulted: Denzel
MDM/Problems Addressed
MDM/Problems Addressed:
CAT scan shows status post cholecystectomy there is mild central intrahepatic bile duct dilatation as well as dilation of the common hepatic and common bile duct however this is stable from previous exam. Patient has normal LFTs.
Patient was seen here 2 days ago and again today with nausea vomiting abdominal pain. He does use marijuana, medical marijuana for history of tonsil cancer in the past. It was felt that patient had hyperemesis cannabinoid. Patient received
Toradol 2 days ago and had improvement and again after Toradol today feels much better and wants to go home. He is nontoxic. His vitals are stable his white count is normal his hemoglobin is stable his BUN is elevated he was given fluids , his
LFTs are normal.
I did discuss the patient cessation of medical marijuana. He does have a chronic pain specialist I did recommend he speak with a specialist about this.
*Critical Care Note
Total Time (30-74mins, 75-104mins- exclusive of procedures): Not Applicable
ED Attending Note
-
Portions of this chart may have been created with voice recognition software.� Occasional wrong word or��sound alike� substitutions may have occurred due to the inherent limitations of voice recognition software.
Discharge Plan
Departure
Patient Disposition: Home (Routine Discharge)
Date of Disposition: 01/22/25
Time of Disposition: 11:22
Patient with high blood pressure during this ER visit?: Yes
Condition: Fair
Covid-19: Not Applicable
Discharge Problem:
Vomiting, Abdominal pain, Cannabinoid hyperemesis syndrome
Instructions: Cannabis hyperemesis syndrome, Nausea and vomiting in adults, Abdominal pain in adults - Discharge instructions
Prescriptions:
No Action
methadone 5 MG tablet
10 mg PO BID
Patient Comments:
patient flled wilmer 10/17/24 #150
atorvastatin 80 MG tablet
80 mg PO DAILY
aspirin 81 MG tablet,chewable
81 mg PO DAILY
Medical Marijuana
1 dose inhalation Q6HPRN PRN (Reason: anxiety, pain)
quetiapine 200 mg Tablet
200 mg PO HS
mirtazapine 7.5 mg Tablet
7.5 mg PO HS
omeprazole 20 mg Tablet,Delayed Release (Dr/Ec)
20 mg PO DAILY
oxycodone 10 mg tablet
10 mg PO Q6HPRN PRN (Reason: pain)
cholecalciferol (vitamin D3) [Vitamin D3] 25 mcg (1,000 unit) Tablet
25 mcg PO DAILY
losartan 25 mg Tablet
25 mg PO DAILY
quetiapine 50 mg Tablet
50 mg PO BID
multivitamin Tablet
1 tab PO DAILY
metoprolol succinate 25 mg Tablet Extended Release 24 Hr
12.5 mg PO DAILY Qty: 30 0RF
Referrals:
Areli Day MD [Family Provider] -
Activity Restrictions/Additional Instructions:
As discussed it is likely marijuana causing your symptoms. Please speak with your pain specialist about additional treatments to manage her pain is recommend they stop marijuana. Follow-up with your family doctor as well as your pain management
specialist next of days and return if any worsening of symptoms.
Interventions
Interventions:
*Risk Screen - Suicide Last Done: 01/22/25 04:57
*General Assessment Last Done: 01/22/25 08:04
*Neglect/Abuse Screening Last Done: 01/22/25 04:57
*ED- Fall Risk Assessment Last Done: 01/22/25 08:04
*ED COVID-19 Vaccine History Last Done: 01/22/25 08:04
Discharge Date and Time
Print Language: LITHUANIAN
[2025-01-22 07:50] VITALS: BMI 21.8
[2025-01-22] MEDS: NSS 1000 IV (08:01)
[2025-01-22] MEDS: HALDOL 5 MG IV (08:57)
[2025-01-22 09:00] VITALS: BP 118/81
[2025-01-22 10:23] LABS: Urine Albumin 2+ (Neg - Trace); Urine Bilirubin Negative (Negative); Urine Character Clear (Clear); Urine Color Yellow; Urine Glucose Negative (Negative); Urine Ketone Negative (Negative); Urine Leukocyte Negative (Negative); Urine Nitrite Negative (Negative); Urine Occult Blood 1+ (Negative); Urine Urobilinogen Negative (Neg - 1+)
[2025-01-22 11:00] VITALS: BP 135/75
[2025-01-22 11:37] VITALS: BP 135/75
[2025-01-22 11:39] LABS: Urine Bacteria Few (Negative); Urine Hyaline Cast 0-2 /LPF (0-2); Urine Mucus Few; Urine Red Blood Cell 0-2 /HPF (0-2); Urine Squamous Cell 0-2 /LPF (Few); Urine White Cell 0-2 /HPF (0-5)
[2025-01-22 11:40] LABS: Urine Urothelial Cell 0-2 /LPF (FEW)
== END 2025-01-22 11:38 | disposition home or self-care (01) ==
LOC: EMR 04:56
PROVIDERS: Emergency Medicine; Nurse Practitioner; EMERGENCY PHYSICIAN Emergency Medicine; FAMILY PHYSICIAN Internal Medicine
DX: R11.2 Nausea with vomiting, unspecified (principal); I11.0 Hypertensive heart disease with heart failure; I50.9 Heart failure, unspecified; E78.00 Pure hypercholesterolemia, unspecified; F12.90 Cannabis use, unspecified, uncomplicated; F17.290 Nicotine dependence, other tobacco product, uncomplicated; N40.0 Benign prostatic hyperplasia without lower urinary tract symptoms; Z79.891 Long term (current) use of opiate analgesic; Z85.818 Personal history of malignant neoplasm of other sites of lip, oral cavity, and pharynx; Z86.73 Personal history of transient ischemic attack (TIA), and cerebral infarction without residual deficits; Z90.49 Acquired absence of other specified parts of digestive tract; Z90.79 Acquired absence of other genital organ(s); Z92.21 Personal history of antineoplastic chemotherapy; Z92.3 Personal history of irradiation; Z98.1 Arthrodesis status
CPT/HCPCS: 99284; 96374; 96361; 74177; 80053; 81003; 81015; 83690; 85025; 93005; Q9967

== ENCOUNTER → 2025-03-30 08:44 | Outpatient (REF) | payer MEDICARE, OTHER, SELFPAY | LOC: RAD 08:44 | PROVIDERS: ATTENDING PHYSICIAN Surgery Vascular Surgery | DX: I65.23 Occlusion and stenosis of bilateral carotid arteries (principal) | CPT/HCPCS: 93880 ==

== ENCOUNTER → 2025-06-04 08:09 | Outpatient (REF) | payer MEDICARE, OTHER, SELFPAY | LOC: HWRCS 08:09 | PROVIDERS: ATTENDING PHYSICIAN Nuclear Medicine Nuclear Cardiology; FAMILY PHYSICIAN Internal Medicine | DX: R00.1 Bradycardia, unspecified (principal); I47.10 Supraventricular tachycardia, unspecified | CPT/HCPCS: 93306 ==